=== PATIENT | male | born 1935 | race Caucasian/White ===

== ENCOUNTER 2018-08-01 16:02 | Outpatient (CLI) | payer MEDICARE ==
--- NOTE | 2018-08-01 18:35 | RAD ---
LEFT FOOT 3 VIEWS: Date: 08/01/18 HISTORY: 83-year-old male with history of left foot pain following a twisting injury 4 days ago with bruising. FINDINGS: There is an oblique fracture through the distal fifth metatarsal with some foreshortening and minimal displacement, without significant angulation deformity. There are some generalized degenerative richardson ges. Small inferior calcaneal enthesophyte. IMPRESSION: Minimally displaced foreshortening oblique fracture distal fifth metatarsal. POS: ROSANNE
== END 2018-08-01 16:03 | disposition home or self-care (01) ==
LOC: SCSRAD 16:02
PROVIDERS: ATTEND Podiatrist Foot & Ankle Surgery
DX: S90.32XA Contusion of left foot, initial encounter (principal); S92.352A Displaced fracture of fifth metatarsal bone, left foot, initial encounter for closed fracture

== ENCOUNTER 2020-02-21 12:38 | Emergency (ER) | payer MEDICARE ==
--- NOTE | 2020-02-21 16:13 | RAD ---
AP PELVIS AND RIGHT HIP TOTAL OF 3 VIEWS: HISTORY: Back pain and hip pain. COMPARISON: No comparison. FINDINGS: There are 2 metallic screws which transfix the right acetabulum. There are severe degenerative quach ers at the right hip. There is loss of contour of the femoral head. Medial joint space narrowing. Prominent subchondral cystic changes on sides of the joint with pronounced hypertrophic change. The left hip is unremarkable. IMPRESSION: Postoperative and severe degenerative changes at the right hip. POS: [facility]
[2020-02-21] MEDS ORDERED: Cyclobenzaprine 10 MG TAB ONE (16:58)
[2020-02-21] MEDS ORDERED: Lidocaine 5% Patch TD SCH (17:15)
== END 2020-02-21 17:57 | disposition home or self-care (01) ==
LOC: ERS 12:38
DX: M16.11 Unilateral primary osteoarthritis, right hip (principal); M54.41 Lumbago with sciatica, right side; I10 Essential (primary) hypertension; N40.0 Benign prostatic hyperplasia without lower urinary tract symptoms; Z87.891 Personal history of nicotine dependence; Z79.899 Other long term (current) drug therapy

== ENCOUNTER 2021-04-02 10:30 | Inpatient (IN) | payer MEDICARE ==
[2021-04-06 11:38] VITALS: BMI 20.3
[2021-04-07] MEDS ORDERED: Midazolam HCl 2 mg/2 ml Vial ONE (07:45)
[2021-04-07] MEDS ORDERED: Fentanyl 100 MCG/2 ML VIAL ONE (07:45)
[2021-04-07] MEDS ORDERED: Sodium Chloride 0.9% 100 ML ONE (08:11)
[2021-04-07] MEDS ORDERED: Vancomycin 1 GM/200 ML BAG ONE (08:11)
[2021-04-07] MEDS ORDERED: Clindamycin/D5W 600 mg/50 ml Premix Bag ONE (08:11)
[2021-04-07] MEDS ORDERED: Tranexamic Acid 1,000 MG/10 ML VIAL ONE (08:11)
== END 2021-04-07 09:34 | disposition home or self-care (01) | DRG 607 ==
LOC: SURG A 04-07 06:27
PROVIDERS: ADMIT Orthopaedic Surgery; ATTEND Orthopaedic Surgery
DX: R21 Rash and other nonspecific skin eruption (principal); I10 Essential (primary) hypertension; N40.0 Benign prostatic hyperplasia without lower urinary tract symptoms
CPT/HCPCS: 36415; 86850; 86900; 86901; J2250; J3010; J3370; J3490

== ENCOUNTER 2021-04-02 12:25 | Outpatient (CLI) | payer MEDICARE ==
[2021-04-02 14:52] LABS: Prothrombin Time 10.6 sec (9.5-12.1)
[2021-04-02 15:07] LABS: #Eosinphils 0.2 10x3/uL (0.0-0.5); #Monocytes 0.7 10x3/uL (0.0-1.1); #Neutrophils 4.8 10x3/uL (1.5-8.4); %Basophils 0.4 % (0.0-2.0); %Eosinophils 2.3 % (0.0-6.0); %Lymphocytes 21.7 % (18.0-47.0); %Monocytes 9.6 % (0.0-10.0); %Neutrophils 65.6 % (40.0-75.0); Hemoglobin 10.3 g/dL (13.5-17.5); Mean Corpuscular HGB CONC 33.2 g/dL (32.0-36.0); Mean Corpuscular Volume 96.3 fl (81.2-95.1); Mean Platelet Volume 8.2 fl (7.4-10.4); Platelet Count 328 10x3/uL (150-450); RBC Distribution Width 12.1 % (11.5-14.5); Red Blood Cell (RBC) Count 3.22 10x6/uL (4.32-5.72); White Blood Cell (WBC) Count 7.3 10x3/uL (3.5-10.5)
[2021-04-02 15:13] LABS: Anion Gap 14 mmol/L (10-20); BUN (Urea Nitrogen) 22 mg/dL (8.4-25.7); Calc. Creatinine Clearance 0 mL/min (70-130); Calcium 9.2 mg/dL (7.8-10.44); Carbon Dioxide 22 mmol/L (23-31); Chloride 100 mmol/L (98-107); Glucose 93 mg/dL (83-110); Potassium 4.6 mmol/L (3.5-5.1); Sodium 131 mmol/L (136-145)
== END 2021-04-02 12:26 | disposition home or self-care (01) ==
LOC: LABBT 12:25
PROVIDERS: ATTEND Orthopaedic Surgery
DX: Z01.818 Encounter for other preprocedural examination (principal); M16.51 Unilateral post-traumatic osteoarthritis, right hip
CPT/HCPCS: 80048; 85025; 85610; 87081; 93005; 93010

== ENCOUNTER 2021-06-04 10:00 | Inpatient (IN) | payer MEDICARE ==
[2021-09-08] MEDS ORDERED: Fentanyl 100 MCG/2 ML VIAL ONE ×5 (05:55→14:06)
[2021-09-08] MEDS ORDERED: Vancomycin 1 GM/200 ML BAG ONE (06:32)
[2021-09-08] MEDS ORDERED: Clindamycin/D5W 600 mg/50 ml Premix Bag ONE (06:32)
[2021-09-08] MEDS ORDERED: Tranexamic Acid 1,000 MG/10 ML VIAL ONE ×2 (06:32→12:11)
[2021-09-08] MEDS ORDERED: Sodium Chloride 0.9% 100 ML ONE (06:33)
[2021-09-08] MEDS ORDERED: Midazolam HCl 2 mg/2 ml Vial ONE (06:48)
[2021-09-08] MEDS ORDERED: Dexamethasone 4 mg/ml Vial ONE (06:48)
[2021-09-08] MEDS ORDERED: Levofloxacin 500 mg/D5W 100 ml Premix Bag ONE (06:57)
[2021-09-08] MEDS ORDERED: Ondansetron PF 4 MG/2 ML Vial ONE (07:12)
[2021-09-08] MEDS ORDERED: Bupivacaine HCl 0.5%/Epinephrine 1:200,000/PF 30 ml Vial ONE (07:12)
[2021-09-08] MEDS ORDERED: PROPOFOL 200 MG/20 ML VIAL ONE (07:12)
[2021-09-08] MEDS ORDERED: Rocuronium Bromide 10 MG/ML (10ML VIAL) ONE (07:12)
[2021-09-08] MEDS ORDERED: Ketorolac Tromethamine 30 MG/ML VIAL ONE (07:12)
[2021-09-08] MEDS ORDERED: ePHEDrine 50 MG/ML VIAL ONE (07:12)
[2021-09-08] MEDS ORDERED: Dexamethasone 20 MG/5 ML VIAL ONE (07:12)
[2021-09-08] MEDS ORDERED: PHENYLEPHRINE-NS 100 MCG/ML 10 ML SYRINGE ONE (07:12)
[2021-09-08] MEDS ORDERED: Glycopyrrolate 0.2 MG/ML 5 ML SYRINGE ONE (07:12)
[2021-09-08 09:34] LABS: Hemoglobin 9.4 g/dL (14.0-18.0)
[2021-09-08] MEDS ORDERED: Phenylephrine 10 MG/ML VIAL ONE (10:11)
[2021-09-08] MEDS ORDERED: Morphine 4 MG/ML VIAL ONE ×3 (12:27→13:29)
[2021-09-08] MEDS ORDERED: Clindamycin/D5W 900 mg/50 ml Premix Bag ONE (14:03)
[2021-09-08] MEDS ORDERED: diphenhydrAMINE 50 MG/ML VIAL IM PRN (14:20)
[2021-09-08] MEDS ORDERED: Ondansetron PF 4 MG/2 ML Vial IVP PRN (14:20)
[2021-09-08] MEDS ORDERED: diphenhydrAMINE 50 MG/ML VIAL IVP PRN (14:20)
[2021-09-08] MEDS ORDERED: Naloxone HCl 0.4 mg/ml Vial IV PRN (14:20)
[2021-09-08] MEDS ORDERED: Promethazine HCl 25 MG/ML VIAL IM PRN ×2 (14:20→16:04)
[2021-09-08] MEDS ORDERED: fentaNYL Citrate/PF 2,000 MCG in Sodium Chloride 0.9% 60 ML IV PRN (14:20)
[2021-09-08] MEDS ORDERED: diphenhydrAMINE 25 MG CAP PO PRN ×2 (14:20→16:04)
[2021-09-08] MEDS ORDERED: Communication Order-Pharmacy FS SCH (14:30)
[2021-09-08] MEDS ORDERED: Zolpidem Tartrate 5 MG TAB PO PRN (16:04)
[2021-09-08] MEDS ORDERED: Fentanyl 100 MCG/2 ML VIAL SLOW IVP PRN ×2 (16:04)
[2021-09-08] MEDS ORDERED: HYDROcodone/Acetaminophen 10/325 mg Tablet PO PRN ×2 (16:04)
[2021-09-08] MEDS ORDERED: traMADol HCl 50 MG TAB PO PRN (16:04)
[2021-09-08] MEDS: Ferrous Gluconate 324 MG TAB PO SCH ×2 (16:27→21:06)
[2021-09-08] MEDS: Multivitamin W/ Minerals 1 TAB PO SCH (16:28)
[2021-09-08] MEDS: Aspirin 81 mg Enteric Coated Tablet PO SCH ×2 (16:30→21:04)
[2021-09-08 16:41] VITALS: BMI 18.8
[2021-09-08] MEDS: Ondansetron PF 4 MG/2 ML Vial IVP PRN (16:59)
[2021-09-08] MEDS: Sodium Chloride 0.9% 1,000 ML IV SCH ×2 (17:02→21:20)
[2021-09-08] MEDS: Clindamycin/D5W 900 MG in Premix Bag 1 BAG IVPB SCH ×2 (17:16→21:21)
[2021-09-08] MEDS ORDERED: hydrALAZINE 20 MG/ML VIAL SLOW IVP PRN (17:57)
[2021-09-08] MEDS ORDERED: Vancomycin 1 GM in Premix Bag 1 BAG IVPB SCH (20:00)
[2021-09-08] MEDS ORDERED: Tamsulosin HCl 0.4 MG CAP PO SCH (21:00)
[2021-09-08] MEDS ORDERED: Losartan 25 MG TAB PO SCH (21:00)
[2021-09-08] MEDS: Senokot S 8.6-50 MG TAB PO SCH (21:05)
[2021-09-08] MEDS: Tamsulosin HCl 0.4 MG CAP PO SCH (21:06)
[2021-09-08] MEDS: Pramipexole Di-HCl 0.125 MG TAB PO SCH (21:07)
[2021-09-09] MEDS: Ondansetron PF 4 MG/2 ML Vial IVP PRN (02:06)
[2021-09-09] MEDS ORDERED: Famotidine 20 MG TAB PO SCH (02:30)
[2021-09-09] MEDS: Zolpidem Tartrate 5 MG TAB PO PRN (02:49)
[2021-09-09 06:14] LABS: Hemoglobin 8.5 g/dL (14.0-18.0); Mean Corpuscular HGB CONC 33.8 g/dL (32.0-36.0); Mean Corpuscular Hemoglobin 33.9 pg (27.0-31.0); Mean Platelet Volume 5.6 fL (7.4-10.4); Platelet Count 216 thou/uL (130-400); RBC Distribution Width 12.5 % (11.5-14.5); Red Blood Cell (RBC) Count 2.51 mill/uL (4.70-6.10); White Blood Cell (WBC) Count 13.1 thou/uL (4.8-10.8)
[2021-09-09] MEDS: Ferrous Gluconate 324 MG TAB PO SCH ×2 (11:21→21:18)
[2021-09-09] MEDS: Senokot S 8.6-50 MG TAB PO SCH ×2 (11:21→21:18)
[2021-09-09] MEDS: Multivitamin W/ Minerals 1 TAB PO SCH (11:21)
[2021-09-09] MEDS: Aspirin 81 mg Enteric Coated Tablet PO SCH ×2 (11:22→21:18)
[2021-09-09] MEDS: Ascorbic Acid 500 mg Chewable Tablet PO SCH (11:22)
[2021-09-09] MEDS: Sodium Chloride 0.9% 1,000 ML IV SCH ×2 (12:30→13:18)
[2021-09-09] MEDS: Pramipexole Di-HCl 0.125 MG TAB PO SCH (21:18)
[2021-09-09] MEDS: Losartan 25 MG TAB PO SCH (21:18)
[2021-09-09] MEDS: Polyethylene Glycol 3350 17 GM Packet PO SCH (21:18)
[2021-09-09] MEDS: Tamsulosin HCl 0.4 MG CAP PO SCH (21:18)
[2021-09-10 06:54] LABS: Hemoglobin 7.8 g/dL (14.0-18.0); Mean Corpuscular HGB CONC 33.6 g/dL (32.0-36.0); Mean Corpuscular Hemoglobin 33.3 pg (27.0-31.0); Mean Corpuscular Volume 99.3 fL (78.0-98.0); Mean Platelet Volume 5.5 fL (7.4-10.4); Platelet Count 200 thou/uL (130-400); RBC Distribution Width 12.1 % (11.5-14.5); Red Blood Cell (RBC) Count 2.34 mill/uL (4.70-6.10); White Blood Cell (WBC) Count 11.1 thou/uL (4.8-10.8)
[2021-09-10] MEDS: Ferrous Gluconate 324 MG TAB PO SCH ×2 (09:18→21:20)
[2021-09-10] MEDS: Ascorbic Acid 500 mg Chewable Tablet PO SCH (09:18)
[2021-09-10] MEDS: Aspirin 81 mg Enteric Coated Tablet PO SCH ×2 (09:18→21:21)
[2021-09-10] MEDS: Senokot S 8.6-50 MG TAB PO SCH ×2 (09:19→21:20)
[2021-09-10] MEDS: Multivitamin W/ Minerals 1 TAB PO SCH (09:19)
[2021-09-10] MEDS: Acetaminophen 325 MG TAB PO PRN ×2 (09:19→13:20)
[2021-09-10] MEDS ORDERED: Fentanyl 100 MCG/2 ML VIAL SLOW IVP PRN (11:11)
[2021-09-10] MEDS ORDERED: traMADol HCl 50 MG TAB PO PRN (11:12)
[2021-09-10] MEDS ORDERED: HYDROcodone/Acetaminophen 10/325 mg Tablet PO PRN ×2 (11:13→11:14)
[2021-09-10] MEDS: Sodium Chloride 0.9% 1,000 ML IV SCH (13:20)
[2021-09-10] MEDS: Losartan 25 MG TAB PO SCH (21:20)
[2021-09-10] MEDS: Zolpidem Tartrate 5 MG TAB PO PRN (21:20)
[2021-09-10] MEDS: Tamsulosin HCl 0.4 MG CAP PO SCH (21:20)
[2021-09-10] MEDS: Pramipexole Di-HCl 0.125 MG TAB PO SCH (21:21)
[2021-09-10] MEDS: Polyethylene Glycol 3350 17 GM Packet PO SCH (21:21)
[2021-09-11 05:27] LABS: Mean Corpuscular HGB CONC 34.1 g/dL (32.0-36.0); Mean Corpuscular Hemoglobin 33.3 pg (27.0-31.0); Mean Corpuscular Volume 97.6 fL (78.0-98.0); Mean Platelet Volume 5.4 fL (7.4-10.4); Platelet Count 178 thou/uL (130-400); RBC Distribution Width 12.1 % (11.5-14.5); Red Blood Cell (RBC) Count 2.42 mill/uL (4.70-6.10); White Blood Cell (WBC) Count 9.6 thou/uL (4.8-10.8)
[2021-09-11] MEDS: Ascorbic Acid 500 mg Chewable Tablet PO SCH (08:22)
[2021-09-11] MEDS: Multivitamin W/ Minerals 1 TAB PO SCH (08:22)
[2021-09-11] MEDS: Aspirin 81 mg Enteric Coated Tablet PO SCH ×2 (08:23→21:33)
[2021-09-11] MEDS: Ferrous Gluconate 324 MG TAB PO SCH ×2 (08:23→21:33)
[2021-09-11] MEDS: traMADol HCl 50 MG TAB PO PRN (08:23)
[2021-09-11] MEDS: Senokot S 8.6-50 MG TAB PO SCH ×2 (08:24→21:32)
[2021-09-11] MEDS: Acetaminophen 325 MG TAB PO PRN (08:24)
[2021-09-11] MEDS: Ibuprofen 200 MG TAB PO PRN (11:47)
[2021-09-11] MEDS: Sodium Chloride 0.9% 1,000 ML IV SCH (19:48)
[2021-09-11] MEDS: Tamsulosin HCl 0.4 MG CAP PO SCH (21:32)
[2021-09-11] MEDS: Polyethylene Glycol 3350 17 GM Packet PO SCH (21:33)
[2021-09-11] MEDS: Losartan 25 MG TAB PO SCH (21:33)
[2021-09-11] MEDS: Pramipexole Di-HCl 0.125 MG TAB PO SCH (21:39)
[2021-09-12] MEDS: traMADol HCl 50 MG TAB PO PRN (04:57)
[2021-09-12 05:26] LABS: Hemoglobin 8.2 g/dL (14.0-18.0); Mean Corpuscular HGB CONC 35.2 g/dL (32.0-36.0); Mean Corpuscular Hemoglobin 34.3 pg (27.0-31.0); Mean Corpuscular Volume 97.5 fL (78.0-98.0); Mean Platelet Volume 5.6 fL (7.4-10.4); Platelet Count 208 thou/uL (130-400); Red Blood Cell (RBC) Count 2.39 mill/uL (4.70-6.10); White Blood Cell (WBC) Count 9.4 thou/uL (4.8-10.8)
[2021-09-12] MEDS: Ascorbic Acid 500 mg Chewable Tablet PO SCH (08:52)
[2021-09-12] MEDS: Ferrous Gluconate 324 MG TAB PO SCH ×2 (08:53→21:43)
[2021-09-12] MEDS: Aspirin 81 mg Enteric Coated Tablet PO SCH ×2 (08:54→21:43)
[2021-09-12] MEDS: Multivitamin W/ Minerals 1 TAB PO SCH (08:54)
[2021-09-12] MEDS: Senokot S 8.6-50 MG TAB PO SCH ×2 (08:54→21:43)
[2021-09-12] MEDS: Sodium Chloride 0.9% 1,000 ML IV SCH (14:59)
[2021-09-12] MEDS: Bisacodyl 10 MG SUPP PR SCH (21:42)
[2021-09-12] MEDS: Tamsulosin HCl 0.4 MG CAP PO SCH (21:43)
[2021-09-12] MEDS: Losartan 25 MG TAB PO SCH (21:43)
[2021-09-12] MEDS: Polyethylene Glycol 3350 17 GM Packet PO SCH (21:44)
[2021-09-12] MEDS: Acetaminophen 325 MG TAB PO PRN (22:26)
[2021-09-12] MEDS: Pramipexole Di-HCl 0.125 MG TAB PO SCH (22:26)
[2021-09-12] MEDS: Ibuprofen 200 MG TAB PO PRN (22:26)
[2021-09-13 05:58] LABS: Mean Corpuscular HGB CONC 34.3 g/dL (32.0-36.0); Mean Corpuscular Hemoglobin 33.7 pg (27.0-31.0); Mean Corpuscular Volume 98.3 fL (78.0-98.0); Mean Platelet Volume 5.7 fL (7.4-10.4); Platelet Count 240 thou/uL (130-400); RBC Distribution Width 11.5 % (11.5-14.5); Red Blood Cell (RBC) Count 2.36 mill/uL (4.70-6.10); White Blood Cell (WBC) Count 7.1 thou/uL (4.8-10.8)
[2021-09-13] MEDS: Ferrous Gluconate 324 MG TAB PO SCH ×2 (08:32→20:18)
[2021-09-13] MEDS: Ascorbic Acid 500 mg Chewable Tablet PO SCH (08:32)
[2021-09-13] MEDS: Aspirin 81 mg Enteric Coated Tablet PO SCH ×2 (08:32→20:18)
[2021-09-13] MEDS: Multivitamin W/ Minerals 1 TAB PO SCH (08:33)
[2021-09-13] MEDS: Senokot S 8.6-50 MG TAB PO SCH ×2 (08:33→20:19)
[2021-09-13] MEDS: Ibuprofen 200 MG TAB PO PRN (11:28)
[2021-09-13] MEDS: Acetaminophen 325 MG TAB PO PRN (11:28)
[2021-09-13] MEDS: Losartan 25 MG TAB PO SCH (20:18)
[2021-09-13] MEDS: Pramipexole Di-HCl 0.125 MG TAB PO SCH (20:19)
[2021-09-13] MEDS: Polyethylene Glycol 3350 17 GM Packet PO SCH ×2 (20:19→20:21)
[2021-09-13] MEDS: Tamsulosin HCl 0.4 MG CAP PO SCH (20:19)
[2021-09-13] MEDS: Bisacodyl 10 MG SUPP PR SCH (20:19)
[2021-09-14 05:18] LABS: Hemoglobin 7.9 g/dL (14.0-18.0); Mean Corpuscular HGB CONC 34.4 g/dL (32.0-36.0); Mean Corpuscular Hemoglobin 33.5 pg (27.0-31.0); Mean Corpuscular Volume 97.2 fL (78.0-98.0); Mean Platelet Volume 5.7 fL (7.4-10.4); Platelet Count 285 thou/uL (130-400); RBC Distribution Width 11.6 % (11.5-14.5); Red Blood Cell (RBC) Count 2.36 mill/uL (4.70-6.10); White Blood Cell (WBC) Count 7.8 thou/uL (4.8-10.8)
[2021-09-14 07:53] VITALS: BP 121/63; TEMP 98.1
[2021-09-14] MEDS: Ascorbic Acid 500 mg Chewable Tablet PO SCH (09:41)
[2021-09-14] MEDS: Senokot S 8.6-50 MG TAB PO SCH (09:41)
[2021-09-14] MEDS: Aspirin 81 mg Enteric Coated Tablet PO SCH (09:41)
[2021-09-14] MEDS: Multivitamin W/ Minerals 1 TAB PO SCH (09:41)
[2021-09-14] MEDS: Ferrous Gluconate 324 MG TAB PO SCH (09:41)
[2021-09-14] MEDS: Ibuprofen 200 MG TAB PO PRN (09:43)
[2021-09-14] MEDS: Acetaminophen 325 MG TAB PO PRN (09:43)
== END 2021-09-14 14:33 | DRG 470 ==
LOC: EDSTATUS 10:00 → SURG A 09-08 05:38 → SURG B 09-08 15:52
PROVIDERS: ADMIT Orthopaedic Surgery; ATTEND Orthopaedic Surgery
PROC: 0SR904Z Replacement of Right Hip Joint with Ceramic on Polyethylene Synthetic Substitute, Open Approach (ICD-10-PCS; principal; 2021-09-08)
PROC: 0QP404Z Removal of Internal Fixation Device from Right Acetabulum, Open Approach (ICD-10-PCS; 2021-09-08)
PROC: 30233N1 Transfusion of Nonautologous Red Blood Cells into Peripheral Vein, Percutaneous Approach (ICD-10-PCS; 2021-09-08)
DX: M16.51 Unilateral post-traumatic osteoarthritis, right hip (principal); N40.0 Benign prostatic hyperplasia without lower urinary tract symptoms; G25.81 Restless legs syndrome; N18.2 Chronic kidney disease, stage 2 (mild); I12.9 Hypertensive chronic kidney disease with stage 1 through stage 4 chronic kidney disease, or unspecified chronic kidney disease; Z20.822 Contact with and (suspected) exposure to COVID-19; E78.5 Hyperlipidemia, unspecified; F03.90 Unspecified dementia, unspecified severity, without behavioral disturbance, psychotic disturbance, mood disturbance, and anxiety; E78.00 Pure hypercholesterolemia, unspecified; H91.90 Unspecified hearing loss, unspecified ear; D50.0 Iron deficiency anemia secondary to blood loss (chronic); J44.9 Chronic obstructive pulmonary disease, unspecified; Z79.891 Long term (current) use of opiate analgesic; Z79.899 Other long term (current) drug therapy; Z85.828 Personal history of other malignant neoplasm of skin; Z86.73 Personal history of transient ischemic attack (TIA), and cerebral infarction without residual deficits; Z88.0 Allergy status to penicillin; Z88.2 Allergy status to sulfonamides; Z88.8 Allergy status to other drugs, medicaments and biological substances; Z91.018 Allergy to other foods; Z91.040 Latex allergy status; Z91.048 Other nonmedicinal substance allergy status; Z87.891 Personal history of nicotine dependence
CPT/HCPCS: 36415; 36430; 72170; 77014; 77290; 77307; 77334; 77412; 77417; 80048; 85014; 85018; 85027; 85610; 86850; 86900; 86901; C1776; J1100; J1885; J1956; J2250; J2270; J2370; J2405; J2704; J3010; J3370; J3490; J7050; P9016; U0003; U0005

== ENCOUNTER 2021-09-07 10:27 | Outpatient (CLI) | payer MEDICARE ==
[2021-09-07 13:20] LABS: Hemoglobin 11.2 g/dL (13.5-17.5); Mean Corpuscular HGB CONC 32.6 g/dL (32.0-36.0); Mean Corpuscular Hemoglobin 32.7 pg (27.0-33.0); Mean Corpuscular Volume 100.6 fl (81.2-95.1); Mean Platelet Volume 8.4 fl (7.4-10.4); Platelet Count 271 10x3/uL (150-450); RBC Distribution Width 12.5 % (11.5-14.5); Red Blood Cell (RBC) Count 3.42 10x6/uL (4.32-5.72); White Blood Cell (WBC) Count 5.7 10x3/uL (3.5-10.5)
[2021-09-07 13:41] LABS: Anion Gap 12 mmol/L (10-20); BUN (Urea Nitrogen) 19 mg/dL (8.4-25.7); Calc. Creatinine Clearance 0 mL/min (70-130); Calcium 8.7 mg/dL (7.8-10.44); Carbon Dioxide 23 mmol/L (23-31); Chloride 104 mmol/L (98-107); Glucose 84 mg/dL (83-110); Potassium 4.6 mmol/L (3.5-5.1); Sodium 134 mmol/L (136-145)
[2021-09-07 13:42] LABS: INR-International Normal Ratio 0.9; Prothrombin Time 10.5 sec (9.5-12.1)
[2021-09-07 22:01] LABS: SARS-CoV-2 PCR by NAA Not Detected (NotDetected)
== END 2021-09-07 10:28 | disposition home or self-care (01) ==
LOC: LABBT 10:27
PROVIDERS: ATTEND Orthopaedic Surgery
DX: Z01.812 Encounter for preprocedural laboratory examination (principal); M16.51 Unilateral post-traumatic osteoarthritis, right hip; Z20.822 Contact with and (suspected) exposure to COVID-19
CPT/HCPCS: 80048; 85027; 85610; U0003; U0005